=== PATIENT | female | born 1930 | race Caucasian/White ===

== ENCOUNTER → 2018-04-02 | Outpatient (CLI) | payer MEDICARE, BC ==
[2018-04-02 10:06] LABS: ALT 46 U/L (9-52); AST 49 U/L (14-36); Alkaline Phosphatase 87 U/L (38-126); Anion Gap 6 mmol/L; Blood Urea Nitrogen 11 mg/dL (7-17); Calcium 9.2 mg/dL (8.4-10.2); Carbon Dioxide 34 mmol/L (22-30); Chloride 94 mmol/L (98-107); Cholesterol 197 mg/dL (<200); Glucose 152 mg/dL (74-99); HDL Cholesterol 83 mg/dL (40-60); LDL Cholesterol,Calculated 99 mg/dL (0-99); Potassium 4.6 mmol/L (3.5-5.1); Sodium 134 mmol/L (137-145); Total Bilirubin 1.1 mg/dL (0.2-1.3); Total Protein 7.3 g/dL (6.3-8.2); Triglycerides 75 mg/dL (<150)
== END | disposition home or self-care (01) ==
LOC: LABWHC1 09:08
PROVIDERS: ATTEND Internal Medicine Interventional Cardiology
DX: E78.2 Mixed hyperlipidemia (principal)
CPT/HCPCS: 36415; 80053; 80061

== ENCOUNTER → 2018-12-14 | Outpatient (CLI) | payer MEDICARE, BC ==
[2018-12-14 16:52] LABS: African American GFR (CKD) 77.4 (60.0-200.0); Albumin/Globulin Ratio 1.74 (1.60-3.17); Anion Gap 5.5 mmol/L (4.00-12.00); BUN/Creat Ratio 18.75 Ratio (12.00-20.00); Calcium 9.3 mg/dL (8.7-10.3); Carbon Dioxide 31.5 mmol/L (21.6-31.8); Globulin 2.3 g/dL (1.6-3.3); LDL Cholesterol,Calculated 73.6 mg/dL (0.0-131.0); Potassium 4.5 mmol/L (3.5-5.5); Total Protein 6.3 g/dL (6.2-8.2); VLDL Calculation 16.4 mg/dL (5.00-40.00)
== END | disposition home or self-care (01) ==
LOC: LABWHC1 08:43
PROVIDERS: ATTEND Internal Medicine Interventional Cardiology
DX: E78.2 Mixed hyperlipidemia (principal)
CPT/HCPCS: 36415; 80053; 80061

== ENCOUNTER 2019-05-13 14:43 | Emergency (ER) | payer MEDICARE, BC ==
[2019-05-13 14:54] VITALS: BP 140/78; PULSE 59; RESP 19; TEMP 98.8
--- NOTE | 2019-05-13 15:21 | ED ---
General Adult HPI - General Chief complaint: Fall Stated complaint: Fall Time Seen by Provider: 05/13/19 14:50 Source: patient, EMS, RN notes reviewed, old records reviewed Mode of arrival: EMS Limitations: no limitations - History of Present Illness Initial comments: This is an 89-year-old female who comes into the emergency department stating she fell because she was walking up until she states she fell backwards on the left side and landed on her buttocks. She denies hitting her head she denies any loss of consciousness or being days. She denies any neck pain. Patient states she does not believe she injured anything from the fall. Patient denies any numbness weakness. Patient denies any chest pain or back pain. Patient denies any upper extremity pain. Patient denies hip pain. Patient denies any lower extremity pain. Patient was able to ambulate in the emergency department all problems. - Related Data Allergies Allergy/AdvReac Type Severity Reaction Status Date / Time No Known Allergies Allergy Verified 05/13/19 14:54 Review of Systems ROS Statement: Those systems with pertinent positive or pertinent negative responses have been documented in the HPI. ROS Other: All systems not noted in ROS Statement are negative. Past Medical History Additional Past Medical History / Comment(s): Rapid heart beat History of Any Multi-Drug Resistant Organisms: None Reported Past Surgical History: No Surgical Hx Reported Past Psychological History: No Psychological Hx Reported Smoking Status: Never smoker Past Alcohol Use History: None Reported Past Drug Use History: None Reported General Exam - General Exam Comments Initial Comments: GENERAL: Patient is well-developed and well-nourished. Patient is nontoxic and well- hydrated and is in no acute distress. ENT: Neck is soft and supple. No significant lymphadenopathy is noted. Oropharynx is clear. Moist mucous membranes. Neck has full range of motion without eliciting any pain. EYES: The sclera were anicteric and conjunctiva were pink and moist. Extraocular movements were intact and pupils were equal round and reactive to light. Eyelids were unremarkable. PULMONARY: Unlabored respirations. Good breath sounds bilaterally. No audible rales rhonchi or wheezing was noted. CARDIOVASCULAR: There is a regular rate and rhythm without any murmurs gallops or rubs. ABDOMEN: Soft and nontender with normal bowel sounds. SKIN: Skin is clear with no lesions or rashes and otherwise unremarkable. NEUROLOGIC: Patient is alert and oriented x3. Cranial nerves II through XII are grossly intact. Motor and sensory are also intact. Normal speech, volume and content. Symmetrical smile. MUSCULOSKELETAL: Normal extremities with adequate strength and full range of motion. No lower extremity swelling or edema. No calf tenderness. LYMPHATICS: No significant lymphadenopathy is noted PSYCHIATRIC: Normal psychiatric evaluation. Limitations: no limitations Course Vital Signs 05/13/19 14:48 Temperature 98.8 F Pulse Rate 59 L Respiratory 19 Rate Blood Pressure 140/78 O2 Sat by Pulse 97 Oximetry Medical Decision Making - Medical Decision Making Patient ambulated around the ER without problems patient denied any pain or problems from the fall. Patient denies any symptoms prior to the fall. Patient would like to go home. I will be discharging the patient home. Disposition Clinical Impression: Fall Disposition: HOME SELF-CARE Condition: Good Instructions (If sedation given, give patient instructions): Fall Prevention for Older Adults (ED) Is patient prescribed a controlled substance at d/c from ED?: No Referrals: Trevor Cuevas DO [Primary Care Provider] - 1-2 days Time of Disposition: 15:21
== END 2019-05-13 15:28 | disposition home or self-care (01) ==
LOC: EC 14:43
DX: Z04.3 Encounter for examination and observation following other accident (principal); W19.XXXA Unspecified fall, initial encounter; Y93.01 Activity, walking, marching and hiking
CPT/HCPCS: 99284

== ENCOUNTER 2020-10-24 12:05 | Emergency (ER) | payer MEDICARE, BC ==
[2020-10-24 12:14] VITALS: BP 160/88; PULSE 77; RESP 20; TEMP 97.9
[2020-10-24] MEDS ORDERED: DIPH,PERTUS(ACELL)TETVAC-LF 0.5 ML VIAL IM ONE (12:42)
--- NOTE | 2020-10-24 13:40 | CT ---
EXAMINATION TYPE: CT brain cspine wo con, CT facial bones wo con DATE OF EXAM: 10/24/2020 COMPARISON: NONE HISTORY: Fall injury with headache, neck pain, and facial pain. CT DLP: 1038.1 (accession [id number]), Included in brain/cspine (accession [id number]) mGm. Automated E xposure Control for Dose Reduction was Utilized. TECHNIQUE: CT scan of the head, facial bones, and cervical spine are performed without contrast. FINDINGS: There is no acute intracranial hemorrhage or midline shift identified. Mild to moderate d iffuse ventricular and sulcal prominence. [id number]-[id number] low attenuation in the deep and perivent ricular white matter. Calvarium is intact. The mandible is intact. Temporomandibular joints are maintained bilaterally. Nasal bones are intact. Orbital floors and navas are intact. The globes are intact bilaterally. The zygomatic arches are inta ct. The mandible is intact. Pterygoid plates are intact. Paranasal sinuses are grossly clear. Cervical spine is visualized in its entirety from C1 through upper thoracic levels and demonstrates s atisfactory alignment without evidence of acute fracture or dislocation. Prevertebral soft tissue ap pears within normal limits. The C1-C2 articulation is within normal limits on the coronal images. Ve rtebral body heights and disc space heights are maintained. Mild to moderate disc space narrowing wit h moderate to severe spurring C5-C6 and C6-C7 levels. Posterior spur disc complexes efface the anteri or thecal sac at these levels. Smaller posterior disc herniations efface the anterior thecal sac at C 3-C4 and C4-C5 levels. Axial images show multilevel uncovertebral facet degenerative changes contribu ting to multilevel neural foraminal narrowing. Reference left C3-C4 and right C4-C5 levels. Somewhat small thyroid gland noted. IMPRESSION: 1. There is no acute fracture or dislocation evident in the cervical spine. 2. No acute intracranial hemorrhage or midline shift is seen. 3. No acute displaced facial bone fracture.
--- NOTE | 2020-10-24 14:01 | ED ---
General Adult HPI - General Chief complaint: Fall Stated complaint: fall, facial injury Time Seen by Provider: 10/24/20 12:32 Source: patient Mode of arrival: wheelchair Limitations: no limitations - History of Present Illness Initial comments: Apryl is an 89-year-old female with a past medical history of atrial fibrillation on aspirin, diabetes mellitus, hyperlipidemia, hypertension who presents to the emergency room for a chief complaint of fall. Patient states that she was walking across a uneven sidewalk after getting her hair done. She states that she tripped and fell. She hit her face but she did not lose consciousness. She did not have any severe neck pain. she does not take blood thinners. Patient has no other complaints at this time including shortness of breath, chest pain, abdominal pain, nausea or vomiting, headache, or visual changes. - Related Data Home Medications Medication Instructions Recorded Confirmed Aspirin EC [Ecotrin Low Dose] 81 mg PO DAILY 10/24/20 10/24/20 Cholecalciferol [Vitamin D3 (25 25 mcg PO DAILY 10/24/20 10/24/20 Mcg = 1000 Iu)] Cinnamon Bark [Cinnamon] 500 mg PO DAILY 10/24/20 10/24/20 Losartan [Cozaar] 25 mg PO DAILY 10/24/20 10/24/20 Multivitamins, Thera [Multivitamin 1 tab PO DAILY 10/24/20 10/24/20 (formulary)] Pravastatin Sodium [Pravachol] 10 mg PO HS 10/24/20 10/24/20 Sotalol [Betapace] 160 mg PO DAILY 10/24/20 10/24/20 aMILoride-HCTZ 5-50 mg [Moduretic 1 tab PO DAILY 10/24/20 10/24/20 5-50] metFORMIN HCL [Glucophage] 500 mg PO W/SUPPER 10/24/20 10/24/20 Allergies Allergy/AdvReac Type Severity Reaction Status Date / Time No Known Allergies Allergy Verified 10/24/20 13:04 Review of Systems ROS Statement: Those systems with pertinent positive or pertinent negative responses have been documented in the HPI. ROS Other: All systems not noted in ROS Statement are negative. Past Medical History Past Medical History: Atrial Fibrillation, Diabetes Mellitus, Hyperlipidemia, H ypertension Additional Past Medical History / Comment(s): Rapid heart beat History of Any Multi-Drug Resistant Organisms: None Reported Past Surgical History: No Surgical Hx Reported Past Psychological History: No Psychological Hx Reported Smoking Status: Never smoker Past Alcohol Use History: None Reported Past Drug Use History: None Reported General Exam Limitations: no limitations General appearance: alert, in no apparent distress Head exam: Present: normocephalic, normal inspection. Absent: atraumatic (abrasions noted to face. ) Eye exam: Present: normal appearance, PERRL, EOMI. Absent: scleral icterus, conjunctival injection, periorbital swelling ENT exam: Present: normal exam, mucous membranes moist. Absent: normal oropharynx (lip laceration to the upper lip. Does not involve michael border. > 1 cm, non gaping) Neck exam: Present: normal inspection, full ROM. Absent: tenderness, meningismus, lymphadenopathy Respiratory exam: Present: normal lung sounds bilaterally. Absent: respiratory distress, wheezes, rales, rhonchi, stridor Cardiovascular Exam: Present: regular rate, normal rhythm, normal heart sounds. Absent: systolic murmur, diastolic murmur, rubs, gallop, clicks GI/Abdominal exam: Present: soft, normal bowel sounds. Absent: distended, tenderness, guarding, rebound, rigid Extremities exam: Present: full ROM (full range of motion of all extremities without tenderness) Back exam: Absent: vertebral tenderness Course Vital Signs 10/24/20 12:07 Temperature 97.9 F Pulse Rate 77 Respiratory 20 Rate Blood Pressure 160/88 O2 Sat by Pulse 98 Oximetry Medical Decision Making - Medical Decision Making vitals are stable. Patient is well-appearing however does have multiple abrasions noted to the face as well as small lip lac not requiring sutures. No injuries to the extremities aside from minor scraping on the dorsal aspect of the hands. No neck or back pain. CT of the cervical spine shows no acute fracture or dislocation. CT brain shows no acute intracranial hemorrhage or midline shift. Facial CT shows no acute displaced bone fracture.at this time patient can be discharged home to follow up with primary care. She will return here for any worsening symptoms. In the meantime she will monitor for any signs of infection. I discussed this case with attending Dr. Evans who agrees with this assessment and treatment plan. Disposition Clinical Impression: Fall, Lip laceration, Abrasion Disposition: HOME SELF-CARE Condition: Good Instructions (If sedation given, give patient instructions): Laceration (ED), Abrasion (ED) Additional Instructions: Keep wounds clean with gentle soap and water. please follow up with primary care for a recheck. Return to the emergency room for any worsening symptoms. Is patient prescribed a controlled substance at d/c from ED?: No Referrals: Trevor Cuevas DO [Primary Care Provider] - 1-2 days Time of Disposition: 14:08
== END 2020-10-24 14:26 | disposition home or self-care (01) ==
LOC: EC 12:05
DX: S01.511A Laceration without foreign body of lip, initial encounter (principal); S60.512A Abrasion of left hand, initial encounter; S60.511A Abrasion of right hand, initial encounter; I10 Essential (primary) hypertension; I48.91 Unspecified atrial fibrillation; E11.9 Type 2 diabetes mellitus without complications; E78.5 Hyperlipidemia, unspecified; Z79.82 Long term (current) use of aspirin; Z79.899 Other long term (current) drug therapy; Z79.84 Long term (current) use of oral hypoglycemic drugs; W01.0XXA Fall on same level from slipping, tripping and stumbling without subsequent striking against object, initial encounter; Y93.01 Activity, walking, marching and hiking
CPT/HCPCS: 70450; 70486; 72125; 90471; 90715; 99283

== ENCOUNTER → 2021-07-18 | Outpatient (CLI) | payer MEDICARE, BC ==
--- NOTE | 2021-07-19 10:20 | XR ---
EXAMINATION TYPE: XR Hip Bilateral Complete DATE OF EXAM: 07/18/2021 COMPARISON: NONE HISTORY: 89-year-old female M25.551, M25.552 TECHNIQUE: 2 views each side FINDINGS: Enthesopathy at the anterior superior iliac spine and ischial tuberosity and to a lesser extent at th e greater trochanters. Findings may be seen in the setting of dish. There is some marginal degenerati ve spurring of both hips but with relative preservation of hip joint space. No acute fracture, sublux ation, or dislocation seen. 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 No acute osseous abnormality seen.
== END | disposition home or self-care (01) ==
LOC: RADXRMAIN 16:52
PROVIDERS: ATTEND Family Medicine
DX: M16.0 Bilateral primary osteoarthritis of hip (principal); M25.752 Osteophyte, left hip; M25.751 Osteophyte, right hip
CPT/HCPCS: 73521

== ENCOUNTER 2021-08-06 06:23 | Emergency (ER) | payer MEDICARE, BC ==
[2021-08-06 06:33] VITALS: TEMP 97.8
[2021-08-06] MEDS ORDERED: LIDOCAINE 1% INJ 10MG/ML (20 ML MDV) SQ ONE (06:40)
[2021-08-06] MEDS ORDERED: DIPH,PERTUS(ACELL)TETVAC-LF 0.5 ML VIAL IM ONE (06:40)
--- NOTE | 2021-08-06 06:48 | ED ---
Fall HPI - General Chief Complaint: Fall Stated Complaint: Fall Time Seen by Provider: 08/06/21 06:32 Source: patient Mode of arrival: EMS - History of Present Illness Initial Comments: Patient is an 89-year-old female with past medical history of atrial fibrillation on aspirin who presents with a chief complaint of fall. Patient was seen to use the bathroom around 5:30 AM this morning she fell and hit her head on the bathroom cabinet onto the floor. Patient does have a history of falls. She did not lose consciousness. She currently denies any pain as well as chest pain, shortness of breath, headache, and dizziness. She is not up-to-date on tetanus. - Related Data Home Medications Medication Instructions Recorded Confirmed Aspirin EC [Ecotrin Low Dose] 81 mg PO DAILY 10/24/20 10/24/20 Cholecalciferol [Vitamin D3 (25 25 mcg PO DAILY 10/24/20 10/24/20 Mcg = 1000 Iu)] Cinnamon Bark [Cinnamon] 500 mg PO DAILY 10/24/20 10/24/20 Losartan [Cozaar] 25 mg PO DAILY 10/24/20 10/24/20 Multivitamins, Thera [Multivitamin 1 tab PO DAILY 10/24/20 10/24/20 (formulary)] Pravastatin Sodium [Pravachol] 10 mg PO HS 10/24/20 10/24/20 Sotalol [Betapace] 160 mg PO DAILY 10/24/20 10/24/20 aMILoride-HCTZ 5-50 mg [Moduretic 1 tab PO DAILY 10/24/20 10/24/20 5-50] metFORMIN HCL [Glucophage] 500 mg PO W/SUPPER 10/24/20 10/24/20 Allergies Allergy/AdvReac Type Severity Reaction Status Date / Time No Known Allergies Allergy Verified 08/06/21 06:26 Review of Systems ROS Statement: Those systems with pertinent positive or pertinent negative responses have been documented in the HPI. ROS Other: All systems not noted in ROS Statement are negative. Past Medical History Past Medical History: Atrial Fibrillation, Diabetes Mellitus, Hyperlipidemia, Hypertension Additional Past Medical History / Comment(s): Rapid heart beat History of Any Multi-Drug Resistant Organisms: None Reported Past Surgical History: No Surgical Hx Reported Past Psychological History: No Psychological Hx Reported Smoking Status: Never smoker Past Alcohol Use History: None Reported Past Drug Use History: None Reported General Exam General appearance: alert, in no apparent distress Head exam: Present: atraumatic, normocephalic, normal inspection Eye exam: Present: normal appearance, PERRL, EOMI. Absent: scleral icterus, conjunctival injection, periorbital swelling ENT exam: Present: TM's normal bilaterally, normal external ear exam Neck exam: Present: lymphadenopathy, other (c-spine collar in place). Absent: tenderness Respiratory exam: Present: normal lung sounds bilaterally. Absent: respiratory distress, wheezes, rales, rhonchi, stridor Cardiovascular Exam: Present: regular rate, normal rhythm GI/Abdominal exam: Present: soft, normal bowel sounds. Absent: distended, tenderness, guarding, rebound, rigid Extremities exam: Present: normal inspection Neurological exam: Present: alert, oriented X3, CN II-XII intact Psychiatric exam: Present: normal affect, normal mood Skin exam: Present: warm, dry, normal color, other (linear laceration over the left eyebrow, arrow-shaped skin tear on left arm ). Absent: rash Course Vital Signs 08/06/21 06:26 Temperature 97.8 F Pulse Rate 82 Respiratory 20 Rate Blood Pressure 151/76 O2 Sat by Pulse 98 Oximetry Procedures - Laceration Laceration #1 Indication: laceration Site: face (beneath left eyebrow) Size (cm): 3 Description: linear Depth: simple, single layer Sedation/Analgesia: none Anesthetic Used: lidocaine 1% Anesthesia Technique: local infiltration Pre-repair: wound explored, irrigated extensively, deep structures intact Type of Sutures: nylon Size of Sutures: 6-0 Technique: simple, interrupted Patient Tolerated Procedure: no complications Additional Comments: 3 cm arrow shaped skin tear on left arm was cleaned thoroughly and wrapped with Kerlix gauze. Medical Decision Making - Medical Decision Making This is an 89-year-old female with a past medical history of atrial fibrillation on aspirin who presents after a fall at 5:30 this morning. Patient looks well and is hemodynamically stable. CT reveals no acute fracture or dislocation evident in the cervical spine, no acute intracranial hemorrhage or midline shift seen. Laceration beneath the left eyebrow was cleaned thoroughly and 5 sutures were placed. Skin tear on left arm was cleaned thoroughly and wrapped with Kerlix gauze. Patient and daughter instructed to follow up with primary care for suture removal in 5 days. Return parameters discussed. Disposition Clinical Impression: Fall Disposition: HOME SELF-CARE Instructions (If sedation given, give patient instructions): Fall Prevention for Older Adults (ED) Additional Instructions: Keep wound clean and dry. Follow-up with primary care provider for suture removal in 5 days. Return to the ER she experience new, concerning, or worsening symptoms. Is patient prescribed a controlled substance at d/c from ED?: No Referrals: Trevor Cuevas DO [Primary Care Provider] - 1-2 days Time of Disposition: 08:18
--- NOTE | 2021-08-06 07:09 | CT ---
EXAMINATION TYPE: CT brain cspine wo con DATE OF EXAM: 08/06/2021 COMPARISON: Trauma CT October 24, 2020 HISTORY: fall injury with headache and neck pain. CT DLP: 1290.9 mGycm. Automated Exposure Control for Dose Reduction was Utilized. TECHNIQUE: CT scan of the head and cervical spine are performed without contrast. FINDINGS: There is no acute intracranial hemorrhage or midline shift identified. Mild ventricular a nd sulcal prominence redemonstrated. Vrtyquki-sc-dkfuig low-attenuation the deep and periventricular white matter again seen. The calvarium is intact. The globes are intact and the visualized sinuses a re clear. Cervical spine is visualized in its entirety from C1 through upper thoracic levels and demonstrates s atisfactory alignment without evidence of acute fracture or dislocation. Prevertebral soft tissue ap pears within normal limits. The C1-C2 articulation is within normal limits on the coronal images. V ertebral body heights are maintained. There is moderate disc space narrowing with severe anterior spu rring C5-C6 and C6-C7 levels redemonstrated. Posterior spur disc complexes efface the anterior thecal sac at these levels. Review of axial images redemonstrates some multilevel uncovertebral facet degen erative changes causing multilevel bilateral neural foraminal narrowing for reference left C3-C4 and right C4-C5 levels. Thyroid gland is normal in size. Lung apices show no pneumothorax. IMPRESSION: 1. There is no acute fracture or dislocation evident in the cervical spine. 2. No acute intracranial hemorrhage or midline shift is seen. No significant change from prior.
[2021-08-06 08:19] VITALS: BP 155/73; PULSE 78; RESP 18
== END 2021-08-06 08:23 | disposition home or self-care (01) ==
LOC: EC 06:23
DX: S01.112A Laceration without foreign body of left eyelid and periocular area, initial encounter (principal); S41.112A Laceration without foreign body of left upper arm, initial encounter; E11.9 Type 2 diabetes mellitus without complications; I10 Essential (primary) hypertension; I48.91 Unspecified atrial fibrillation; E78.5 Hyperlipidemia, unspecified; Z79.82 Long term (current) use of aspirin; Z79.84 Long term (current) use of oral hypoglycemic drugs; Z79.899 Other long term (current) drug therapy; W18.11XA Fall from or off toilet without subsequent striking against object, initial encounter
CPT/HCPCS: 72125; 70450; 90715; 12013; 90471; 99284; J2001

== ENCOUNTER 2021-09-05 08:57 | Day surgery (SDC) | payer MEDICARE, BC ==
[2021-09-04 11:47] VITALS: BMI 26.4
[~2021-09-05 08:57] MED LIST: SODIUM CHLORIDE 0.9% 1,000 ML IV SCH
[2021-09-05 09:50] LABS: Glucose,Whole Blood 157 mg/dL (75-99)
[2021-09-05 09:54] VITALS: TEMP 97.7
[2021-09-05] MEDS ORDERED: SODIUM CHLORIDE 0.9% 500 ML 500 ML IV ONE (09:54)
[2021-09-05] MEDS ORDERED: fentaNYL (PF) 50 MCG/ML 2 ML AMP IVP ONE (10:15)
[2021-09-05] MEDS ORDERED: LIDOCAINE 1% INJ 10MG/ML (20 ML MDV) SQ ONE (10:17)
[2021-09-05] MEDS ORDERED: SODIUM CHLORIDE 0.9% 1,000 ML IV SCH (10:30)
--- NOTE | 2021-09-05 10:34 | P.PCN ---
Date of Procedure: 09/05/21 Preoperative Diagnosis: Unexplained syncope Postoperative Diagnosis: The same Procedure(s) Performed: Loop recorder insertion Description of Procedure: Patient was brought to the lab in a fasting state. Patient is prepped and coretta ped in the usual fashion. She was given 12.5 g of fentanyl for sedation. The skin in the third intercostal space on the left side was infiltrated with lidocaine. An incision was made in the skin and the loop recorder was inserted in the usual fashion. 2 silk stay sutures were applied to the skin. Patient tolerated the procedure well. Blood loss is less than 5 mL. No immediate complications. The device is programmed in the usual fashion Plan: Patient will be discharged home later today. Patient will keep the dressing dry until seen in the office in one week. May use Tylenol for pain
[2021-09-05 11:08] VITALS: RESP 16
[2021-09-05 12:01] VITALS: BP 150/66; PULSE 95
== END 2021-09-05 12:06 | disposition home or self-care (01) ==
LOC: CATHEP 08:57
PROVIDERS: ATTEND Internal Medicine Cardiovascular Disease
DX: R55 Syncope and collapse (principal); R53.83 Other fatigue; I10 Essential (primary) hypertension; E78.2 Mixed hyperlipidemia; E11.9 Type 2 diabetes mellitus without complications; Z20.822 Contact with and (suspected) exposure to COVID-19; Z98.890 Other specified postprocedural states; Z79.82 Long term (current) use of aspirin; Z79.899 Other long term (current) drug therapy
CPT/HCPCS: 33285; 87635; C1764; J0690; J2001; J3010

== ENCOUNTER 2022-03-17 14:03 | Emergency (ER) | payer MEDICARE, BC ==
[2022-03-17 14:57] VITALS: BP 139/79; PULSE 77; RESP 20; TEMP 98.2
--- NOTE | 2022-03-17 15:49 | CT ---
EXAMINATION TYPE: CT brain wo con for TPA DATE OF EXAM: 03/17/2022 COMPARISON: 08/06/2021 HISTORY: weakness CT DLP: 1055.4 mGycm Automated exposure control for dose reduction was used. There is some cerebral cortical atrophy. There is no mass effect or midline shift. No sign of intracr anial hemorrhage. There is some hypodensity in the periventricular white matter. There is 8 mm lacuna r infarct right internal capsule. Calvarium is intact. 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 Chronic small vesse l ischemia.
--- NOTE | 2022-03-17 15:52 | XR ---
EXAMINATION TYPE: XR chest 2V DATE OF EXAM: 03/17/2022 COMPARISON: NONE HISTORY: Altered mental status TECHNIQUE: 2 views FINDINGS: There is no heart failure nor confluent pneumonic infiltrate. Costophrenic angles are clear . There are no hilar masses. There is some spurring in the thoracic spine. There are some coarse lung markings left lower lobe. IMPRESSION: There is likely some subsegmental atelectasis or fibrotic changes left lung base. No hear t failure..
[2022-03-17 16:12] LABS: Basophils % (A) 1 %; Eosinophils # (A) 0.1 k/uL (0-0.7); Eosinophils % (A) 2 %; HCT 46.4 % (34.0-46.0); HGB 15.6 gm/dL (11.4-16.0); Lymphocytes # (A) 1.1 k/uL (1.0-4.8); Lymphocytes % (A) 20 %; MCH 32.4 pg (25.0-35.0); MCHC 33.5 g/dL (31.0-37.0); MCV 96.8 fL (80.0-100.0); Mean Platelet Volume 8.5; Monocytes # (A) 0.5 k/uL (0-1.0); Monocytes % (A) 9 %; Neutrophils # (A) 3.5 k/uL (1.3-7.7); Neutrophils % (A) 66 %; Platelet Count 178 k/uL (150-450); RDW 13.1 % (11.5-15.5); WBC 5.3 k/uL (3.8-10.6)
[2022-03-17 16:22] LABS: Partial Thromboplastin Time 23.5 sec (22.0-30.0); Prothrombin Time 10.9 sec (9.0-12.0)
[2022-03-17 16:23] LABS: ALT 19 U/L (4-34); AST 40 U/L (14-36); African American GFR (CKD) >90 (>60 ml/min/1.73 sqM); Alkaline Phosphatase 106 U/L (38-126); Anion Gap 12 mmol/L; Blood Urea Nitrogen 14 mg/dL (7-17); Calcium 9.2 mg/dL (8.4-10.2); Carbon Dioxide 27 mmol/L (22-30); Chloride 95 mmol/L (98-107); Glucose 112 mg/dL (74-99); Non-African American GFR(CKD) 82 (>60 ml/min/1.73 sqM); Potassium 3.7 mmol/L (3.5-5.1); Sodium 134 mmol/L (137-145); Total Bilirubin 0.8 mg/dL (0.2-1.3)
--- NOTE | 2022-03-17 16:41 | ED ---
General Adult HPI - General Chief complaint: Neuro Symptoms/Deficit Stated complaint: poss stroke Time Seen by Provider: 03/17/22 15:09 Source: patient Mode of arrival: ambulatory Limitations: no limitations - History of Present Illness Initial comments: This patient is an 89-year-old woman who presents to have evaluation for constellation of symptoms that developed approximately around noon today. History is given by both the patient and her daughter who is at the bedside. The patient had been sitting when she was noticed by her daughter to slump to her right side. She also had shaking that her daughter described as a very intense tremor but involving both arms. The patient was having a difficult time with communication she was not able to speak. She did not lose consciousness, and she did not have loss of continence. The symptoms lasted for a number of minutes, and then she began feeling better. The tremor stopped and she was able to speak. There did not appear to be postictal period of confusion. She was able to get up and walk to the bathroom at her home. They discussed the symptoms and felt she should be seen in the emergency department here. Patient states she is feeling back to normal now. -: hour(s) Severity scale (1-10): 0 Consistency: now resolved Worsens with: none Associated Symptoms: denies other symptoms - Related Data Home Medications Medication Instructions Recorded Confirmed Aspirin EC [Ecotrin Low Dose] 81 mg PO DAILY 10/24/20 03/17/22 Cholecalciferol [Vitamin D3 (25 50 mcg PO DAILY 10/24/20 03/17/22 Mcg = 1000 Iu)] Cinnamon Bark [Cinnamon] 1,000 mg PO HS 10/24/20 03/17/22 Multivitamins, Thera [Multivitamin 1 tab PO DAILY 10/24/20 03/17/22 (formulary)] Pravastatin Sodium [Pravachol] 10 mg PO HS 10/24/20 03/17/22 aMILoride-HCTZ 5-50 mg [Moduretic 1 tab PO DAILY 10/24/20 03/17/22 5-50] Ferrous Sulfate [Feosol] 325 mg PO DAILY 08/06/21 03/17/22 Latanoprost Ophth [Xalatan 0.005%] 1 drop BOTH EYES HS 09/04/21 03/17/22 Metoprolol Tartrate [Lopressor] 25 mg PO DAILY 03/17/22 03/17/22 Allergies Allergy/AdvReac Type Severity Reaction Status Date / Time No Known Allergies Allergy Verified 03/17/22 17:16 Review of Systems ROS Statement: Those systems with pertinent positive or pertinent negative responses have been documented in the HPI. ROS Other: All systems not noted in ROS Statement are negative. Constitutional: Denies: fever, chills Eyes: Denies: vision change Respiratory: Denies: cough, dyspnea Cardiovascular: Reports: edema. Denies: chest pain, palpitations, syncope Gastrointestinal: Denies: abdominal pain, vomiting, diarrhea Genitourinary: Denies: dysuria, hematuria Musculoskeletal: Denies: back pain Skin: Denies: rash Neurological: Reports: as per HPI, weakness, other. Denies: headache Hematological/Lymphatic: Denies: easy bleeding Past Medical History Past Medical History: Atrial Fibrillation, Diabetes Mellitus, Hyperlipidemia, Hypertension Additional Past Medical History / Comment(s): See Dr. Winkler H&P. No medication needed any longer for Diabetes. History of Any Multi-Drug Resistant Organisms: None Reported Past Surgical History: Orthopedic Surgery Additional Past Surgical History / Comment(s): Right knee surgery, colonoscopies. Past Anesthesia/Blood Transfusion Reactions: No Reported Reaction Past Psychological History: No Psychological Hx Reported Smoking Status: Never smoker Past Alcohol Use History: None Reported Past Drug Use History: None Reported - Past Family History Daughter(s) Family Medical History: Cancer General Exam Limitations: no limitations General appearance: alert, in no apparent distress Head exam: Present: atraumatic, normocephalic Eye exam: Present: normal appearance. Absent: scleral icterus, conjunctival injection ENT exam: Present: normal oropharynx Neck exam: Present: normal inspection Respiratory exam: Present: normal lung sounds bilaterally. Absent: respiratory distress, wheezes, rales, rhonchi, stridor Cardiovascular Exam: Present: regular rate, normal rhythm, normal heart sounds. Absent: systolic murmur, diastolic murmur, rubs, gallop GI/Abdominal exam: Present: soft. Absent: distended, tenderness, guarding, rebound, rigid, mass Extremities exam: Present: normal inspection, normal capillary refill. Absent: pedal edema, calf tenderness Back exam: Present: normal inspection Neurological exam: Present: alert, oriented X3, CN II-XII intact. Absent: motor sensory deficit Expanded Patient oriented to: Present: person, place, time Speech: Present: fluid speech Cerebellar function: Finger to Nose: Normal Sensory exam: Upper Extremity Light Touch: Normal, Lower Extremity Light Touch: Normal Motor strength exam: RUE: 5, LUE: 5, RLE: 5, LLE: 5 Eye Response: (4) open spontaneously Motor Response: (6) obeys commands Verbal Response: (5) oriented Skin exam: Present: warm, dry, intact, normal color. Absent: rash Course Vital Signs 03/17/22 14:54 Temperature 98.2 F Pulse Rate 77 Respiratory 20 Rate Blood Pressure 139/79 O2 Sat by Pulse 97 Oximetry EKG Findings - EKG Results: EKG: interpreted by JASS, sinus rhythm (Rate 77 bpm) - Blocks, Mcintosh, Hypertrophy, ST Abn: AV and intraventricular conduction: left bundle branch block (fixed/intermittent, complete/incomplete) Medical Decision Making - Medical Decision Making This patient is an 89-year-old woman who had an episode at home which she was shaking and is was finding it difficult to speak. She is back at baseline on arrival and she feels well throughout her stay here. The workup is concerning for lacunar infarct of the anterior capsule since her last CT. In light of this I recommended that she be seen by neurology and was going to admit her here but patient states that as she is back at baseline she will follow up as an outpatient. We discussed appropriate control of blood pressure, keeping on her aspirin and they may switch her to Plavix, and she will follow-up. They will return here should any symptoms recur or new symptoms develop. - Lab Data Result diagrams: 03/17/22 15:59 03/17/22 15:59 Lab Results 03/17/22 03/17/22 03/17/22 Range/Units 15:59 15:59 15:59 WBC 5.3 (3.8-10.6) k/uL RBC 4.80 (3.80-5.40) m/uL Hgb 15.6 (11.4-16.0) gm/dL Hct 46.4 H (34.0-46.0) % MCV 96.8 (80.0-100.0) fL MCH 32.4 (25.0-35.0) pg MCHC 33.5 (31.0-37.0) g/dL RDW 13.1 (11.5-15.5) % Plt Count 178 (150-450) k/uL MPV 8.5 Neutrophils % 66 % Lymphocytes % 20 % Monocytes % 9 % Eosinophils % 2 % Basophils % 1 % Neutrophils # 3.5 (1.3-7.7) k/uL Lymphocytes # 1.1 (1.0-4.8) k/uL Monocytes # 0.5 (0-1.0) k/uL Eosinophils # 0.1 (0-0.7) k/uL Basophils # 0.0 (0-0.2) k/uL PT 10.9 (9.0-12.0) sec INR 1.0 (<1.2) APTT 23.5 (22.0-30.0) sec Sodium 134 L (137-145) mmol/L Potassium 3.7 (3.5-5.1) mmol/L Chloride 95 L (98-107) mmol/L Carbon Dioxide 27 (22-30) mmol/L Anion Gap 12 mmol/L BUN 14 (7-17) mg/dL Creatinine 0.59 (0.52-1.04) mg/dL Est GFR (CKD-EPI)AfAm >90 (>60 ml/min/1.73 sqM) Est GFR (CKD-EPI)NonAf 82 (>60 ml/min/1.73 sqM) Glucose 112 H (74-99) mg/dL Calcium 9.2 (8.4-10.2) mg/dL Total Bilirubin 0.8 (0.2-1.3) mg/dL AST 40 H (14-36) U/L ALT 19 (4-34) U/L Alkaline Phosphatase 106 (38-126) U/L Troponin I (0.000-0.034) ng/mL Total Protein 7.0 (6.3-8.2) g/dL Albumin 4.0 (3.5-5.0) g/dL 03/17/22 Range/Units 15:59 WBC (3.8-10.6) k/uL RBC (3.80-5.40) m/uL Hgb (11.4-16.0) gm/dL Hct (34.0-46.0) % MCV (80.0-100.0) fL MCH (25.0-35.0) pg MCHC (31.0-37.0) g/dL RDW (11.5-15.5) % Plt Count (150-450) k/uL MPV Neutrophils % % Lymphocytes % % Monocytes % % Eosinophils % % Basophils % % Neutrophils # (1.3-7.7) k/uL Lymphocytes # (1.0-4.8) k/uL Monocytes # (0-1.0) k/uL Eosinophils # (0-0.7) k/uL Basophils # (0-0.2) k/uL PT (9.0-12.0) sec INR (<1.2) APTT (22.0-30.0) sec Sodium (137-145) mmol/L Potassium (3.5-5.1) mmol/L Chloride (98-107) mmol/L Carbon Dioxide (22-30) mmol/L Anion Gap mmol/L BUN (7-17) mg/dL Creatinine (0.52-1.04) mg/dL Est GFR (CKD-EPI)AfAm (>60 ml/min/1.73 sqM) Est GFR (CKD-EPI)NonAf (>60 ml/min/1.73 sqM) Glucose (74-99) mg/dL Calcium (8.4-10.2) mg/dL Total Bilirubin (0.2-1.3) mg/dL AST (14-36) U/L ALT (4-34) U/L Alkaline Phosphatase (38-126) U/L Troponin I <0.012 (0.000-0.034) ng/mL Total Protein (6.3-8.2) g/dL Albumin (3.5-5.0) g/dL Disposition Clinical Impression: Lacunar infarction Disposition: Left Against Medical Advice Condition: Fair Instructions (If sedation given, give patient instructions): Stroke (DC) Is patient prescribed a controlled substance at d/c from ED?: No Referrals: Trevor Cuevas DO [Primary Care Provider] - 1-2 days Nancy Vallejo MD [STAFF PHYSICIAN] - 1-2 days
== END 2022-03-17 17:30 | disposition left against medical advice (07) ==
LOC: EC 14:03
DX: I63.81 Other cerebral infarction due to occlusion or stenosis of small artery (principal); E11.9 Type 2 diabetes mellitus without complications; E78.5 Hyperlipidemia, unspecified; I10 Essential (primary) hypertension
CPT/HCPCS: 36415; 70450; 71046; 80053; 84484; 85025; 85610; 85730; 93005; 99284